=== PATIENT | female | born 1965 | race Hispanic/Latino ===

== ENCOUNTER 2017-12-03 00:07 | Emergency (ER) | payer BC ==
[2017-12-03] MEDS ORDERED: ZOFRAN ONE ×2 (01:41)
[2017-12-03] MEDS ORDERED: ZOFRAN IV ONE (02:28)
[2017-12-03 02:32] LABS: Basophils # (Auto) 0.2 K/mm3 (0.0-0.1); Basophils % (Auto) 1.1 % (0.0-1.8); Eosinophils # (Auto) 0.1 K/mm3 (0.0-0.4); Eosinophils % (Auto) 0.4 % (0.0-4.3); Hematocrit 43.7 % (30.3-42.9); Lymphocytes # (Auto) 1.5 K/mm3 (1.2-5.4); Lymphocytes % (Auto) 10.8 % (13.4-35.0); Mean Corpuscular HGB Conc 32 % (30-34); Mean Corpuscular Volume 81 fl (79-97); Monocytes # (Auto) 0.5 K/mm3 (0.0-0.8); Monocytes % (Auto) 3.6 % (0.0-7.3); Platelet Count 442 K/mm3 (140-440); Red Cell Distribution Width 16.2 % (13.2-15.2)
--- NOTE | 2017-12-03 02:33 | XRay Report ---
FINAL REPORT EXAM: XR ABD SERIES W CXR 1V HISTORY: abdominal pain TECHNIQUE: A PA view of the chest was obtained along with two views of the abdomen and pelvis. FINDINGS: The chest shows the heart to be mildly enlarged. The lungs are clear. Pleural fluid is not seen. The bones soft tissues are well maintained. The abdominal bowel gas pattern is normal. There are surgical clips in the right upper quadrant. Free air is not seen. There are calcifications along the floor pelvis. The skeletal structures do not show any acute changes. IMPRESSION: No acute process in the chest. Cholecystectomy. No acute process in the abdomen and pelvis.
[2017-12-03 02:41] LABS: Mean Corpuscular Hemoglobin 26 pg (28-32)
[2017-12-03 03:13] LABS: Alanine Aminotransferase 58 units/L (7-56); Albumin 4.4 g/dL (3.9-5); BUN/Creatinine Ratio 25; Blood Urea Nitrogen 15 mg/dL (7-17); Calcium 8.9 mg/dL (8.4-10.2); Hemolysis Index 0; Lipase 26 units/L (13-60)
[2017-12-03] MEDS ORDERED: REGLAN IV ONE (03:53)
[2017-12-03] MEDS ORDERED: DILAUDID IV ONE (03:53)
[2017-12-03] MEDS ORDERED: NACL 0.9% 1000 ML 1,000 ML IV ONE (03:55)
[2017-12-03 05:07] LABS: Amorphous Crystals,Urine Few; Bacteria,Urine 1+ /HPF (Negative); Bilirubin,Urine NEG (Negative); Blood,Urine NEG (Negative); Color,Urine Yellow (Yellow); Mucus,Urine FEW /HPF; RBC,Urine < 1.0 /HPF (0.0-6.0); Urobilinogen,Urine < 2.0 mg/dL (<2.0)
--- NOTE | 2017-12-03 06:28 | Emergency Department Report ---
ED Abdominal Pain HPI - General Chief Complaint: Abdominal Pain Stated Complaint: ABDOMINAL PAIN Time Seen by Provider: 12/03/17 06:27 Source: patient Mode of arrival: Ambulatory Limitations: No Limitations - History of Present Illness Initial Comments: This is a patient status post a gastric sleeve perform the laparoscopy on 2017. She states that she was doing fine after the surgery up until yesterday when she developed epigastric discomfort and vomiting. She had been given analgesics and antiemetics prior to my arrival. She states that was effective in pain control as she is no longer nauseated. Pain was described as nonradiating ache which has improved. MD Complaint: abdominal pain -: Gradual, hour(s) Location: epigastric Radiation: none Migration to: no migration Severity scale (0 -10): 5 Quality: aching Consistency: now resolved Improves With: nothing Worsens With: nothing Context: other Associated Symptoms: nausea, vomiting (no signs of hematemesis) - Related Data Previous Rx's Medication Instructions Recorded Last Taken Type Ondansetron [Zofran Odt] 4 mg PO Q6HR PRN #10 tab.rapdis 12/03/17 Unknown Rx traMADol [Ultram] 50 mg PO Q4HR PRN #14 tablet 12/03/17 Unknown Rx Allergies Allergy/AdvReac Type Severity Reaction Status Date / Time morphine Allergy Itching Verified 12/03/17 02:02 ED Review of Systems ROS: Stated complaint: ABDOMINAL PAIN Other details as noted in HPI Constitutional: denies: chills, fever Eyes: denies: eye pain, eye discharge, vision change ENT: denies: ear pain, throat pain Respiratory: denies: cough, shortness of breath, wheezing Cardiovascular: denies: chest pain, palpitations Endocrine: no symptoms reported Gastrointestinal: as per HPI, abdominal pain, nausea, vomiting, diarrhea ( states minimal) Genitourinary: denies: urgency, dysuria, discharge Musculoskeletal: denies: back pain, joint swelling, arthralgia Skin: denies: rash, lesions Neurological: denies: headache, weakness, paresthesias Psychiatric: denies: anxiety, depression Hematological/Lymphatic: denies: easy bleeding, easy bruising ED Past Medical Hx - Past Medical History Additional medical history: Obesity - Surgical History Hx Cholecystectomy: Yes Additional Surgical History: Gastric Sleeve, Hernia Repair - Social History Smoking Status: Current Every Day Smoker Substance Use Type: None - Medications Home Medications: Home Medications Medication Instructions Recorded Confirmed Last Taken Type Ondansetron [Zofran Odt] 4 mg PO Q6HR PRN #10 tab.rapdis 12/03/17 Unknown Rx traMADol [Ultram] 50 mg PO Q4HR PRN #14 tablet 12/03/17 Unknown Rx ED Physical Exam - General Limitations: No Limitations General appearance: alert, in no apparent distress - Head Head exam: Present: atraumatic, normocephalic - Eye Eye exam: Present: normal appearance, PERRL, EOMI. Absent: scleral icterus - ENT ENT exam: Present: mucous membranes moist - Neck Neck exam: Present: normal inspection. Absent: tenderness, meningismus - Respiratory Respiratory exam: Present: normal lung sounds bilaterally. Absent: respiratory distress - Cardiovascular Cardiovascular Exam: Present: regular rate, normal rhythm. Absent: systolic murmur, diastolic murmur, rubs, gallop - GI/Abdominal GI/Abdominal exam: Present: soft, normal bowel sounds, hernia (small ventral hernia noted), other (surgical sites are intact without infection). Absent: distended, tenderness, guarding, rebound, rigid - Extremities Exam Extremities exam: Present: normal inspection - Back Exam Back exam: Present: normal inspection - Neurological Exam Neurological exam: Present: alert, oriented X3, CN II-XII intact. Absent: motor sensory deficit - Psychiatric Psychiatric exam: Present: normal affect, normal mood - Skin Skin exam: Present: warm, dry, intact, normal color. Absent: rash ED Course Vital Signs 12/03/17 12/03/17 01:55 03:30 Temperature 98.1 F 97.6 F Pulse Rate 104 H 79 Respiratory 18 20 Rate Blood Pressure 184/79 Blood Pressure 193/82 [Left] O2 Sat by Pulse 97 95 Oximetry - Reevaluation(s) Reevaluation #1: Patient's surgeon has been paged. The CT study was essentially reassuring. 12/03/17 07:40 Reevaluation #2: Patient continues to do well. I spoke with the surgical nurse practitioner. They stated that they would see the patient in the office tomorrow. She will be given a copy of her CT report something for nausea and pain. 12/03/17 08:41 ED Medical Decision Making - Lab Data Result diagrams: 12/03/17 02:07 12/03/17 02:07 Laboratory Results - last 24 hr 12/03/17 12/03/17 12/03/17 02:07 02:07 Unknown WBC 14.3 H RBC 5.40 H Hgb 14.0 Hct 43.7 H MCV 81 MCH 26 L MCHC 32 RDW 16.2 H Plt Count 442 H Lymph % (Auto) 10.8 L [place] % (Auto) 3.6 Eos % (Auto) 0.4 Baso % (Auto) 1.1 Lymph # 1.5 Frontier # 0.5 Eos # 0.1 Baso # 0.2 H Seg Neutrophils % 84.1 H Seg Neutrophils # 12.1 H Sodium 144 Potassium 4.2 Chloride 104.1 Carbon Dioxide 22 Anion Gap 22 BUN 15 Creatinine 0.6 L Estimated GFR > 60 BUN/Creatinine Ratio 25 Glucose 154 H Calcium 8.9 Total Bilirubin 0.40 AST 45 H ALT 58 H Alkaline Phosphatase 93 Total Protein 7.8 Albumin 4.4 Albumin/Globulin Ratio 1.3 Lipase 26 Urine Color Yellow Urine Turbidity Clear Urine pH 5.0 Ur Specific [place] 1.030 Urine Protein 100 mg/dl Urine Glucose (UA) 50 Urine Ketones 20 Urine Blood Neg Urine Nitrite Neg Urine Bilirubin Neg Urine Urobilinogen < 2.0 Ur Leukocyte Esterase Neg Urine WBC (Auto) 5.0 Urine RBC (Auto) < 1.0 U Epithel Cells (Auto) 8.0 Urine Bacteria (Auto) 1+ Amorphous Crystals Few Urine Mucus Few Critical care attestation.: If time is entered above; I have spent that time in minutes in the direct care of this critically ill patient, excluding procedure time. ED Disposition Clinical Impression: History of bariatric surgery, Left bundle branch block Abdominal pain Qualifiers: Abdominal location: epigastric Qualified Code(s): R10.13 - Epigastric pain Ventral hernia Qualifiers: Obstruction and gangrene presence: without obstruction or gangrene Qualified Code(s): K43.9 - Ventral hernia without obstruction or gangrene Diverticulosis Qualifiers: Diverticulosis site: diverticulosis of large intestine Diverticulosis bleeding : diverticulosis without bleeding Qualified Code(s): K57.30 - Diverticulosis of large intestine without perforation or abscess without bleeding Disposition: - TO HOME OR SELFCARE Is pt being admited?: No Does the pt Need Aspirin: No Condition: Stable Instructions: Abdominal Pain (ED), Ventral Hernia (ED) Additional Instructions: Return any acute change or recurrent symptoms. Return if any fever or chills. See your bariatric surgery physicians tomorrow. Prescriptions: Ondansetron [Zofran Odt] 4 mg PO Q6HR PRN #10 tab.rapdis PRN Reason: Nausea traMADol [Ultram] 50 mg PO Q4HR PRN #14 tablet PRN Reason: Pain Referrals: BRIAN FLORES MD [Staff Physician] - 24 Hours Time of Disposition: 08:44
--- NOTE | 2017-12-03 06:29 | Cat Scan Report ---
FINAL REPORT EXAM: CT ABDOMEN PELVIS WO/W CON HISTORY: abdominal pain/post gastric sleeve TECHNIQUE: Routine axial imaging was obtained of the abdomen and pelvis initially without and subsequently after intravenous injection of iodinated contrast. Oral contrast was also administered. Sagittal and coronal reconstructions were reviewed. FINDINGS: The lung bases are clear. Pleural fluid is not seen. There are postsurgical changes in the stomach compatible with gastric sleeve procedure. There is no evidence of complication. The gallbladder has been removed. The liver, biliary tree, pancreas, and spleen appear normal. The adrenal glands appear normal. The kidneys show no evidence of stones or hydronephrosis. Both kidneys enhance normally. There calcification of the abdominal aorta. The vascular structures otherwise enhance normally. The bowel loops reveal numerous diverticula in the descending and sigmoid colon. There is no evidence of diverticulitis. The appendix appears normal. There is no evidence of free fluid or adenopathy. In the pelvis the uterus and bladder appear normal. The surrounding soft tissues reveal a very small umbilical hernia containing omental fat. There also an additional upper abdominal midline hernia containing omental fat measuring 2.1 cm in diameter. The skeletal structures reveal arthritic changes of the L5-S1 level. IMPRESSION: Cholecystectomy. No acute process in the abdomen and pelvis. Status post gastric sleeve surgery. No evidence of complication. Very small upper abdominal midline ventral hernia measuring 2.1 cm in diameter containing omental fat. Uncomplicated colonic diverticulosis. Arthritic changes lower lumbar spine.
[2017-12-03 09:20] VITALS: BP 132/68
== END 2017-12-03 09:09 | disposition home or self-care (01) ==
LOC: ED 00:07
DX: K57.90 Diverticulosis of intestine, part unspecified, without perforation or abscess without bleeding (principal); K43.9 Ventral hernia without obstruction or gangrene; F17.200 Nicotine dependence, unspecified, uncomplicated; Z88.6 Allergy status to analgesic agent
CPT/HCPCS: 36415; 74022; 74178; 80053; 81001; 83690; 85025; 87086; 93005; 93010; 96361; 96374; 96375; 99284; J1170; J2405; J2765; J7030; Q9967

== ENCOUNTER 2017-12-07 01:53 | Emergency (ER) | payer BC ==
[2017-12-07 03:30] LABS: Basophils # (Auto) 0.1 K/mm3 (0.0-0.1); Basophils % (Auto) 0.9 % (0.0-1.8); Eosinophils % (Auto) 0.3 % (0.0-4.3); Hematocrit 42.4 % (30.3-42.9); Hemoglobin 13.8 gm/dl (10.1-14.3); Lymphocytes # (Auto) 1.3 K/mm3 (1.2-5.4); Mean Corpuscular HGB Conc 33 % (30-34); Mean Corpuscular Hemoglobin 26 pg (28-32); Mean Corpuscular Volume 80 fl (79-97); Monocytes # (Auto) 0.5 K/mm3 (0.0-0.8); Monocytes % (Auto) 3.6 % (0.0-7.3); Platelet Count 390 K/mm3 (140-440); Red Blood Count 5.28 M/mm3 (3.65-5.03); Red Cell Distribution Width 15.9 % (13.2-15.2)
[2017-12-07 03:45] LABS: Alanine Aminotransferase 40 units/L (7-56); Albumin 4.5 g/dL (3.9-5); BUN/Creatinine Ratio 26; Blood Urea Nitrogen 13 mg/dL (7-17); Hemolysis Index 6
[2017-12-07 07:13] LABS: Bilirubin,Urine NEG (Negative); Blood,Urine MOD (Negative); Color,Urine Yellow (Yellow); Mucus,Urine FEW /HPF; Urobilinogen,Urine < 2.0 mg/dL (<2.0)
[2017-12-07] MEDS ORDERED: ZOFRAN IV ONE ×2 (07:32→11:44)
[2017-12-07] MEDS ORDERED: DILAUDID IV ONE (07:33)
--- NOTE | 2017-12-07 08:05 | Emergency Department Report ---
HPI - General Chief Complaint: Abdominal Pain Time Seen by Provider: 12/07/17 07:02 - HPI HPI: 51-year-old female presents to the emergency department with the complaint of a 6-7 day history of upper abdominal pain, nausea and vomiting. The patient had gastric bypass surgery done on November 15 of [address] Donovan. She was in the emergency department on 12/03/17 for these symptoms and had a CT scan that did not show any complication of the surgery or any other acute processes. They said that they saw Dr. Donovan in the office in the past day or so as well. She presents again today with a continuation of the symptoms. She denies any fever, dysuria, diarrhea, constipation. She has not taken anything for her symptoms in the past few days prior to presentation. No recent travel or sick contacts at home. She denies any other past medical history. ED Past Medical Hx - Past Medical History Additional medical history: Obesity - Surgical History Hx Cholecystectomy: Yes Additional Surgical History: Gastric Sleeve, Hernia Repair - Social History Smoking Status: Never Smoker Substance Use Type: None - Medications Home Medications: Home Medications Medication Instructions Recorded Confirmed Last Taken Type traMADol [Ultram] 50 mg PO Q4HR PRN #14 tablet 12/03/17 Unknown Rx Ondansetron [Zofran Odt] 4 mg PO Q8H PRN #10 tab.rapdis 12/07/17 Unknown Rx oxyCODONE /ACETAMINOPHEN [Percocet 1 tab PO Q6HR PRN #8 tablet 12/07/17 Unknown Rx 5/325] ED Review of Systems ROS: Stated complaint: ABD PAIN; S/P GASTRIC BYPASS 11/15/17 Other details as noted in HPI Comment: All other systems reviewed and negative Constitutional: denies: chills, fever Eyes: denies: eye pain, eye discharge, vision change ENT: denies: ear pain, throat pain Respiratory: denies: cough, shortness of breath, wheezing Cardiovascular: denies: chest pain, palpitations Gastrointestinal: abdominal pain, nausea, vomiting Genitourinary: denies: urgency, dysuria, discharge Musculoskeletal: denies: back pain, joint swelling, arthralgia Skin: denies: rash, lesions Neurological: denies: headache, weakness, paresthesias Physical Exam - Physical Exam Vital Signs: Vital Signs 12/07/17 12/07/17 12/07/17 02:52 06:20 06:30 Temperature 98.6 F Pulse Rate 85 Respiratory 18 Rate Blood Pressure 229/109 223/106 O2 Sat by Pulse 94 94 96 Oximetry 12/07/17 12/07/17 12/07/17 06:45 06:59 07:00 Temperature Pulse Rate 83 96 H Respiratory 22 18 23 Rate Blood Pressure 221/92 228/105 O2 Sat by Pulse 96 100 95 Oximetry 12/07/17 12/07/17 12/07/17 07:15 07:30 07:34 Temperature 98.1 F Pulse Rate 75 107 H Respiratory 22 27 H Rate Blood Pressure 209/95 204/92 O2 Sat by Pulse 95 95 Oximetry Physical Exam: GENERAL: The patient is well-developed well-nourished. HENT: Normocephalic. Atraumatic. Patient has moist mucous membranes. EYES: Extraocular motions are intact. Pupils equal reactive to light bilaterally. NECK: Supple. Trachea is midline. CHEST/LUNGS: Clear to auscultation. There is no respiratory distress noted. HEART/CARDIOVASCULAR: Regular. There is no tachycardia. There is no murmur. ABDOMEN: Abdomen is soft. Mild generalized tenderness to palpation of the abdomen. No guarding. Patient has normal bowel sounds. Obese habitus. SKIN: Skin is warm and dry. NEURO: The patient is awake, alert, and oriented. The patient is cooperative. The patient has no focal neurologic deficits. The patient has normal speech. MUSCULOSKELETAL: There is no tenderness or deformity. There is no limitation range of motion. There is no evidence of acute injury. ED Course Vital Signs 12/07/17 12/07/17 12/07/17 02:52 06:20 06:30 Temperature 98.6 F Pulse Rate 85 Respiratory 18 Rate Blood Pressure 229/109 223/106 O2 Sat by Pulse 94 94 96 Oximetry 12/07/17 12/07/17 12/07/17 06:45 06:59 07:00 Temperature Pulse Rate 83 96 H Respiratory 22 18 23 Rate Blood Pressure 221/92 228/105 O2 Sat by Pulse 96 100 95 Oximetry 12/07/17 12/07/17 12/07/17 07:15 07:30 07:34 Temperature 98.1 F Pulse Rate 75 107 H Respiratory 22 27 H Rate Blood Pressure 209/95 204/92 O2 Sat by Pulse 95 95 Oximetry - Consultations Consultation #1: I spoke with Dr. Donovan regarding the patient's lab results thus far and the patient's presentation with abdominal pain, nausea or vomiting. He asked for the patient to have a repeat CT scan of the abdomen and pelvis with oral and IV contrast and I will call him back with the results. 12/07/17 08:05 12/07/17 14:55 I later spoke with Dr. Donovan again after the CT results came back and he feels that the patient should be safe for discharge home this evening but will see them in the office tomorrow first thing. ED Medical Decision Making - Lab Data Result diagrams: 12/07/17 03:04 12/07/17 03:04 - Radiology Data Radiology results: report reviewed EXAM: CT ABDOMEN PELVIS W CON HISTORY: abd pain, gastric bypass on 11/15/17 TECHNIQUE: CT of the abdomen and pelvis was performed after the administration of intravenous contrast. Subsequently, CT of the abdomen and pelvis was performed in the delayed phase. Reconstructions were included in the coronal and sagittal planes. PRIORS: 12/03/2017. FINDINGS: Lower thorax: The lung bases are clear. The visualized portions of the heart are normal. Liver: The liver is normal in attenuation. No intrahepatic biliary duct dilation. No focal hepatic lesions. Gallbladder/ biliary system: Postcholecystectomy. The common bile duct appears nondilated. Spleen: No splenic lesions are seen. Pancreas: No pancreatic lesions are seen. No pancreatic duct dilation. Kidneys: No renal masses, cysts or hydronephrosis. Adrenal glands: No adrenal masses. Vasculature: The abdominal and pelvic vasculature is patent without variant anatomy. Atherosclerotic calcifications are seen in the abdominal aorta. Lymph nodes: No enlarged lymph nodes are seen in the abdomen or pelvis. Bowel, mesentery, peritoneum: No bowel obstruction. No free fluid or free air. The appendix is normal. Unchanged colonic diverticulosis without diverticulitis. Mild stranding in the anterior/upper omentum is unchanged, likely related to the prior surgery. Post gastric sleeve surgery again seen. There is a small focal outpouching along the suture line of the greater trochanter of the stomach. This is similar in appearance to the prior study. Urinary bladder: No filling defects are seen. Pelvis: Probable anterior uterine fibroid is seen. Abdominal wall: Fat containing inguinal hernias are seen. Small fat containing anterior, upper abdominal wall hernia is seen. Bones: Degenerative changes are seen in the lumbar spine. IMPRESSION: 1. Post gastric sleeve surgery with a small focal outpouching along the suture line along greater curvature of the stomach which was seen on the prior study and may represent normal postsurgical change versus a small hernia. Consider further evaluation with upper GI study to better assess this area. 2. Unchanged chronic findings including colonic diverticulosis. Transcribed By: MG Dictated By: REILLY PIERRE MD Electronically Authenticated By: REILLY PIERRE MD Signed Date/Time: 12/07/17 1138 - Medical Decision Making Patient presents with a six-day history of abdominal pain, nausea or vomiting. She was in fact vomiting upon first arrival. She was given some IV narcotic pain medication and a dose of Zofran. The one dose of narcotic pain medication appeared to help her a lot and she did not require any further pain medication during her ED course. She did require another dose of antiemetics. Labs are mostly unremarkable including no leukocytosis. Patient had some transient hypertension and was given a few doses of antihypertensive medication but prior to discharge it came down to about 134/80. CT scan of the abdomen and pelvis with by mouth and IV contrast did not show any signs of any leak, abscess or postsurgical complication, nor any acute process. The bariatric surgeon was contacted multiple times regarding the patient's presentation and eventually the lab and imaging results and felt that the patient is safe for discharge home and will see her in the office tomorrow morning. The patient was discharged home with some pain and nausea medication. All the labs, imaging and plan for discharge to follow up with bariatric surgery were discussed with the patient and her and they understand the plan. - Differential Diagnosis gastritis, bowel obstruction, leak, hiatal hernia Critical Care Time: No Critical care attestation.: If time is entered above; I have spent that time in minutes in the direct care of this critically ill patient, excluding procedure time. ED Disposition Clinical Impression: History of bariatric surgery, Dehydration Abdominal pain Qualifiers: Abdominal location: generalized Qualified Code(s): R10.84 - Generalized abdominal pain Nausea & vomiting Qualifiers: Vomiting type: unspecified Vomiting Intractability: non-intractable Qualified Code(s): R11.2 - Nausea with vomiting, unspecified Disposition: DC-01 TO HOME OR SELFCARE Is pt being admited?: No Condition: Stable Instructions: Dehydration (ED), Acute Nausea and Vomiting (ED), Abdominal Pain (ED) Additional Instructions: Please follow up with Dr. Donovan tomorrow morning without fail. Return to the closest emergency department if there is any worsening of her symptoms, inability to keep down any fluid, or with any acute distress. You have been prescribed a medication that is sedating and therefore should not be taken prior to driving, working, and responsible for children and in no way should be mixed with alcohol of any quantity. Prescriptions: Ondansetron [Zofran Odt] 4 mg PO Q8H PRN #10 tab.rapdis PRN Reason: Nausea oxyCODONE /ACETAMINOPHEN [Percocet 5/325] 1 tab PO Q6HR PRN #8 tablet PRN Reason: Pain Referrals: PRIMARY CARE,MD [Primary Care Provider] - 3-5 Days BRIAN DONOVAN MD [Staff Physician] - 3-5 Days Time of Disposition: 14:15
[2017-12-07] MEDS ORDERED: APRESOLINE IV ONE (08:30)
--- NOTE | 2017-12-07 11:43 | Cat Scan Report ---
FINAL REPORT EXAM: CT ABDOMEN PELVIS W CON HISTORY: abd pain, gastric bypass on 11/15/17 TECHNIQUE: CT of the abdomen and pelvis was performed after the administration of intravenous contrast. Subsequently, CT of the abdomen and pelvis was performed in the delayed phase. Reconstructions were included in the coronal and sagittal planes. PRIORS: 12/03/2017. FINDINGS: Lower thorax: The lung bases are clear. The visualized portions of the heart are normal. Liver: The liver is normal in attenuation. No intrahepatic biliary duct dilation. No focal hepatic lesions. Gallbladder/ biliary system: Postcholecystectomy. The common bile duct appears nondilated. Spleen: No splenic lesions are seen. Pancreas: No pancreatic lesions are seen. No pancreatic duct dilation. Kidneys: No renal masses, cysts or hydronephrosis. Adrenal glands: No adrenal masses. Vasculature: The abdominal and pelvic vasculature is patent without variant anatomy. Atherosclerotic calcifications are seen in the abdominal aorta. Lymph nodes: No enlarged lymph nodes are seen in the abdomen or pelvis. Bowel, mesentery, peritoneum: No bowel obstruction. No free fluid or free air. The appendix is normal. Unchanged colonic diverticulosis without diverticulitis. Mild stranding in the anterior/upper omentum is unchanged, likely related to the prior surgery. Post gastric sleeve surgery again seen. There is a small focal outpouching along the suture line of the greater trochanter of the stomach. This is similar in appearance to the prior study. Urinary bladder: No filling defects are seen. Pelvis: Probable anterior uterine fibroid is seen. Abdominal wall: Fat containing inguinal hernias are seen. Small fat containing anterior, upper abdominal wall hernia is seen. Bones: Degenerative changes are seen in the lumbar spine. IMPRESSION: 1. Post gastric sleeve surgery with a small focal outpouching along the suture line along greater curvature of the stomach which was seen on the prior study and may represent normal postsurgical change versus a small hernia. Consider further evaluation with upper GI study to better assess this area. 2. Unchanged chronic findings including colonic diverticulosis.
[2017-12-07] MEDS ORDERED: NORMODYNE IV ONE (13:07)
[2017-12-07 14:36] VITALS: BP 127/61
== END 2017-12-07 14:45 | disposition home or self-care (01) ==
LOC: ED 01:53
DX: R10.84 Generalized abdominal pain (principal); E86.0 Dehydration; R11.2 Nausea with vomiting, unspecified
CPT/HCPCS: 36415; 74177; 80053; 81001; 85025; 96374; 96375; 96376; 99284; J0360; J1170; J2405; Q9967

== ENCOUNTER 2017-12-15 07:27 | Outpatient (CLI) | payer BC ==
--- NOTE | 2017-12-15 08:58 | Fluoroscopy Report ---
UGI WITH AIR WITH KUB INDICATION: Epigastric pain. Status post gastric sleeve on 11/15/2017. COMPARISON: 12/07/2017 CT. FINDINGS: Upper GI exam performed. Patient swallowed thick and thin barium without any difficulty and tolerated effervescent granules well. [employer] radiograph demonstrates nonobstructive bowel gas pattern and postsurgical changes in the left upper quadrant. Cholecystectomy clips. Few pelvic phleboliths. Esophagus is normal in course and caliber. Normal peristalsis and mucosal pattern, to the extent assessed. Minimal hiatal hernia possible. Severe gastroesophageal reflux extending to the thoracic inlet though noted. Approximately 2-3 cm opacified mild outpouching near the gastric fundus, felt along the superior aspect of the staple line. Otherwise unremarkable residual stomach, duodenum and proximal small bowel. CONCLUSION: Severe gastroesophageal reflux and various other findings, as described. Please correlate. Thank you for the opportunity to participate in this patient's care.
== END 2017-12-15 07:28 | disposition home or self-care (01) ==
LOC: FLUORO 07:27
PROVIDERS: ATTEND Specialist
DX: K21.9 Gastro-esophageal reflux disease without esophagitis (principal); K30 Functional dyspepsia; I87.8 Other specified disorders of veins; Z90.49 Acquired absence of other specified parts of digestive tract
CPT/HCPCS: 74247